=== PATIENT | male | born 1955 | race Caucasian/White ===

== ENCOUNTER 2017-03-15 15:30 | Emergency (ER) | payer OTHER ==
[2017-03-15] MEDS ORDERED: LISINOPRIL40 M1 PO (17:19)
[2017-03-15] MEDS ORDERED: LIPITOR80 M1 PO (17:23)
[2017-03-15] MEDS ORDERED: ADDERALL XR 3030 M1 PO (17:25)
[2017-03-15] MEDS ORDERED: OMEPRAZOLE40 M2 PO (17:25)
[2017-03-15] MEDS ORDERED: ASPIRIN81 M1 PO (17:25)
[2017-03-15] MEDS ORDERED: LOVAZA1 GM/CAP PO (17:26)
[2017-03-15] MEDS ORDERED: COQ-10100 M1 PO (17:26)
[2017-03-15] MEDS ORDERED: KEFLEX500 M4 PO (18:42)
== END 2017-03-15 19:08 ==
LOC: EDMED 15:30
PROC: 0HQGXZZ Repair Left Hand Skin, External Approach (ICD-10-PCS; principal; 2017-03-15)
DX: S61.215A Laceration without foreign body of left ring finger without damage to nail, initial encounter (principal); W29.3XXA Contact with powered garden and outdoor hand tools and machinery, initial encounter; Y92.009 Unspecified place in unspecified non-institutional (private) residence as the place of occurrence of the external cause